=== PATIENT | female | born 1990 | race Caucasian/White ===

== ENCOUNTER 2024-08-06 21:25 | Observation (INO) ==
[2024-08-07] MEDS ORDERED: Magnesium Hydroxide LIQ 30 ML UDC PO PRN (00:24)
[2024-08-07] MEDS ORDERED: Senna TAB 8.6 mg TAB PO PRN (00:24)
[2024-08-07] MEDS ORDERED: Albuterol/Ipratropium NEB.SOL (2.5/0.5 MG) 3 ML NEB.SOLN INH PRN (00:54)
[2024-08-07] MEDS: Senna TAB 8.6 mg TAB PO SCH (01:01)
[2024-08-07] MEDS: Magnesium Hydroxide LIQ 30 ML UDC PO SCH (01:01)
[2024-08-07 03:46] LABS: Calcium 8.6 mg/dL (8.6-10.3); Creatinine, Serum 0.52 mg/dL (0.51-0.95); Potassium 3.6 mmol/L (3.5-5.0)
[2024-08-07] MEDS: Heparin 5000 UNITS/ML 1 mL VIAL SUBCUT SCH (06:16)
[2024-08-07] MEDS: LINACLOTIDE 72 MCG CAP (NF) PO SCH (08:54)
[2024-08-07] MEDS: Polyethylene Glycol 3350 17 GM PACKET PO SCH (08:55)
[2024-08-07 09:07] LABS: ABS Eosinophils 0.2 10^3/uL (0.0-0.5); ABS Monocytes 0.7 10^3/uL (0.0-0.9); ABS Neutrophils 2.8 10^3/uL (1.5-7.6); ABS Nucleated RBC 0.01 10^3/ul; Eosinophil % 4.2 %; Hematocrit 35.2 % (35-45); Hemoglobin 11.8 g/dL (11.5-14.3); Lymphocyte % 34.8 %; Mean Corpuscular Hemoglobin 30.5 pg (27-33); Mean Corpuscular Hgb Conc 33.5 g/dL (31-36); Mean Corpuscular Volume 90.9 fL (80-97); Nucleated Red Blood Cells % 0.3 %/100WBC (0.0-0.8); Platelet Count 339 10^3/uL (150-450); Red Blood Count 3.87 10^6/uL (3.63-4.92); Red Cell Distribution Width 13.3 % (12-17); White Blood Count 5.8 10^3/uL (3.8-11.8)
[2024-08-07] MEDS: Sulfur Hexaflouride MICROSPHR 25 MG VIAL IV PRN (09:56)
[2024-08-07 15:04] LABS: Urine Appearance Clear; Urine Bilirubin Negative (Negative); Urine Blood Negative (Negative); Urine Color Yellow; Urine Glucose Negative (Negative); Urine Ketones Negative (Negative); Urine Nitrite Negative (Negative); Urine Protein Trace (Negative); Urine Specific Gravity 1.027 (1.002-1.030); Urine Urobilinogen Negative (Negative); Urine pH 6.5 (5.0-8.0)
[2024-08-07 15:05] LABS: Urine Bacteria Absent /HPF (Absent); Urine Red Blood Cell Trace(0-2/hpf) /HPF (0-Trace); Urine Squamous Epithelial Cell Present /HPF (Absent); Urine White Blood Cell Trace(0-5/hpf) /HPF (0-Trace)
[2024-08-07] MEDS: Ondansetron ODT 4 mg TAB 4 MG TAB SL PRN (17:31)
[2024-08-07] MEDS: Iohexol 350 (CONTRAST) 500 ML MDV IV ONE (18:34)
[2024-08-07] MEDS ORDERED: Lorazepam PYXIS KEY PRN (18:59)
[2024-08-07] MEDS: LORazepam 2 MG/ML 1 mL Syringe IV ONE (19:45)
[2024-08-07] MEDS: LORazepam 2 mg VIAL 1 ml IV PUSH ONE (19:45)
[2024-08-07] MEDS: Potassium Chloride LIQUID 20 MEQ/15 ML LIQUID PO ONE (20:04)
[2024-08-08 06:05] LABS: Hematocrit 33.3 % (35-45); Hemoglobin 11.5 g/dL (11.5-14.3); Mean Corpuscular Hemoglobin 31.4 pg (27-33); Mean Corpuscular Hgb Conc 34.7 g/dL (31-36); Mean Corpuscular Volume 90.5 fL (80-97); Platelet Count 333 10^3/uL (150-450); Red Blood Count 3.68 10^6/uL (3.63-4.92); Red Cell Distribution Width 13.5 % (12-17); White Blood Count 5.6 10^3/uL (3.8-11.8)
[2024-08-08 06:43] LABS: Calcium 8.4 mg/dL (8.6-10.3); Creatinine, Serum 0.51 mg/dL (0.51-0.95); Magnesium 1.8 mg/dL (1.9-2.7); Potassium 3.9 mmol/L (3.5-5.0); eGFR CKD-EPI 125.5 (>60)
[2024-08-08] MEDS: CMCS: LINACLOTIDE 72 MCG CAP (NF) PO SCH (09:42)
[2024-08-08] MEDS: Furosemide 20 mg/2 ml IV VIAL IV SLOW PU ONE (12:07)
[2024-08-08 13:38] VITALS: BP 126/72
[2024-08-08 16:48] LABS: TSH Ultra Thyroid Stim Horm 1.19 mcIU/mL (0.34-5.60)
[2024-08-08 16:52] LABS: Prolactin 73.3 ng/mL (1.0-25.0)
== END 2024-08-08 17:40 | disposition home or self-care (01) ==
LOC: ED 21:25 → EDHOLD 21:25 → MED 08-07 14:46
PROVIDERS: ADMIT Internal Medicine; ATTEND Student in an Organized Health Care Education/Training Program